=== PATIENT | male | born 2000 | race Caucasian/White ===

== ENCOUNTER 2022-07-21 20:50 | Emergency (ER) | payer BC ==
[2022-07-21 21:16] VITALS: BP 140/88; PULSE 89
[2022-07-21] MEDS ORDERED: Sodium Chloride 0.9% 1,000 ML IV ONE (21:17)
[2022-07-21] MEDS ORDERED: Ondansetron 4 MG/2 ML SDV IVPUSH ONE (21:17)
[2022-07-21] MEDS ORDERED: Sodium Chloride 0.9% 1,000 ML ONE (21:19)
[2022-07-21] MEDS ORDERED: Ondansetron 4 MG/2 ML SDV ONE (21:19)
== END 2022-07-21 22:40 | disposition home or self-care (01) ==
LOC: KA.ED 20:50
DX: R11.10 Vomiting, unspecified (principal); R19.7 Diarrhea, unspecified; K21.9 Gastro-esophageal reflux disease without esophagitis; E66.9 Obesity, unspecified; Z68.31 Body mass index [BMI] 31.0-31.9, adult; Z88.0 Allergy status to penicillin; Z88.8 Allergy status to other drugs, medicaments and biological substances; Z79.899 Other long term (current) drug therapy
CPT/HCPCS: 96361; 96374; 99283; 99283-25; J2405; J7030